=== PATIENT | male | born 1960 | race Caucasian/White ===

== ENCOUNTER 2016-09-20 22:12 | Emergency (ER) | payer OTHER ==
[~2016-09-20] VITALS: Ht 172.7 cm; Wt 70.3 kg
[~2016-09-20 22:12] MED LIST: /CELE20CA PO; ACET-654 PO; CHAN0.5P6 PO; PERCOCET OR
[2016-09-20] MEDS ORDERED: PRAV40TA2 PO (22:23)
[2016-09-20] MEDS ORDERED: TIOT18INH INH (22:25)
[2016-09-20] MEDS ORDERED: SING10TA32 PO (22:25)
[2016-09-20] MEDS ORDERED: ALBU17IN2 INH (22:25)
[2016-09-20] MEDS ORDERED: dexameTHASONE 20 MG/5 ML VIAL (J1100) IV ONE (22:45)
[2016-09-20] MEDS: IPRATROPIUM 0.5MG/ALBUTEROL 2.5MG INH SOL UD 3ML (DUONEB)(J7620) NEB SCH ×2 (23:10→23:32)
[2016-09-21] MEDS ORDERED: ZITHTAB PO (00:08)
[2016-09-21] MEDS ORDERED: PRED20TA PO (00:08)
[2016-09-21 00:14] VITALS: BP 121/74
--- NOTE | 2016-09-21 07:47 | REP ---
Clinical: Dyspnea . Comparison: 02/02/2014 . Technique: PA and lateral. Findings: The mediastinum and cardiac silhouette are normal. The lung escudero are clear and without acute consolidation, effusion, or pneumothorax. The skeletal structures are intact and normal. Impression: 1. No acute cardiopulmonary process. Signed by Kirby Hollingsworth MD 09/21/2016 07:39 A
== END 2016-09-21 00:27 | disposition home or self-care (01) ==
LOC: M ED 23:32
DX: J44.0 Chronic obstructive pulmonary disease with (acute) lower respiratory infection (principal); E78.5 Hyperlipidemia, unspecified; Z79.51 Long term (current) use of inhaled steroids; Z79.899 Other long term (current) drug therapy
CPT/HCPCS: 71020; 94640; 96374; 99283; J1100

== ENCOUNTER 2016-12-31 04:21 | Emergency (ER) | payer OTHER ==
[~2016-12-31] VITALS: Ht 172.7 cm; Wt 70.5 kg
[~2016-12-31 04:21] MED LIST changes: +ALBU17IN2 INH; +PRAV40TA2 PO; +PRED20TA PO; +SING10TA32 PO; +TIOT18INH INH; +ZITHTAB PO
[2016-12-31] MEDS ORDERED: DOXY100C37 PO (05:56)
[2016-12-31] MEDS ORDERED: LIDOCAINE 1% MDV 20ML VIAL As Ordered ONE (05:57)
[2016-12-31] MEDS ORDERED: DOXYCYCLINE HYCLATE 100 MG TAB PO ONE (06:00)
[2016-12-31] MEDS ORDERED: cefTRIAXone SOD 250 MG VIAL (J0696) IM ONE (06:00)
[2016-12-31 06:28] VITALS: BP 129/74
== END 2016-12-31 06:31 | disposition home or self-care (01) ==
LOC: M ED 04:21
DX: N34.1 Nonspecific urethritis (principal); F17.200 Nicotine dependence, unspecified, uncomplicated; Z79.899 Other long term (current) drug therapy
CPT/HCPCS: 81001; 87086; 87491; 87591; 96372; 99282; J0696